=== PATIENT | female | born 1950 | race Caucasian/White ===

== ENCOUNTER 2016-11-15 09:42 | Emergency (ER) | payer OTHER ==
[~2016-11-15] VITALS: Ht 172.7 cm; Wt 113.4 kg
--- NOTE | ~2016-11-15 | H ---
[facility] [place] [address] HISTORY AND PHYSICAL Name: CHECO HAMEED Room #: DEP MDonovanR.#: [id number] Admission: 11/15/16 Attend Phys: Discharge: 11/15/16 Date of : 48 Report #: [id number] THIS REPORT FOR: //name// CC: Michael Ndiaye DATE OF SERVICE: 11/15/2016 CHIEF COMPLAINT: Altered mental status. HISTORY OF PRESENT ILLNESS: The patient is a 66-year-old female sent to the ER from [facility] facility for evaluation of altered mental status. She had recently suffered a series of 2 strokes along with cardiac complications at [facility]. This left her with some dysarthria and left hemiparesis. She has a remote history of renal transplant and has been left with some chronic kidney insufficiency. This morning, she felt sudden onset of headache and did not feel right and had altered mental status. She was transferred emergently in an unresponsive state to the ER and subsequently was intubated after multiple attempts. A CT of the brain reveals a large hematoma of the right occipital lobe with extension of bleeding into the fourth ventricle and marked effacement of the basilar cisterns with early tonsillar herniation. There is a 3.5 cm right to left midline shift. Dr. Ndiaye in the Emergency Room spoken with Neurosurgery at [facility] and they reviewed the scan. There is no surgical intervention at this point and palliative care has been recommended. PAST MEDICAL HISTORY: As above, there is a history of non-ST segment elevation myocardial infarction, history of renal transplant in 2010, respiratory failure, peripheral artery disease, diabetes. PAST SURGICAL HISTORY: Unknown. FAMILY HISTORY: Unknown. SOCIAL HISTORY: Unknown. ALLERGIES: MORPHINE. MEDICATIONS: Currently list from the outlying facility is unknown and not available. REVIEW OF SYSTEMS: She is unable to give review. PHYSICAL EXAMINATION: VITAL SIGNS: Temperature 36.2, pulse 79, respirations 16 on the ventilator, blood pressure 169/87, O2 sat 100% on the ventilator. [facility] [address] [place] [address] HISTORY AND PHYSICAL Name: CHECO HAMEED Room #: DEP [facility]US[facility]ovan[facility] [id number] Admission: 11/15/16 Attend Phys: Discharge: 11/15/16 Date of : 48 Report #: [id number] GENERAL: She looks chronically ill. She is not alert. HEART AND LUNGS: Unremarkable. ABDOMEN: Soft. EXTREMITIES: No edema. NEUROLOGIC: She had no response to any verbal or physical stimuli and pupils are dilated. ASSESSMENT: 1. Massive intracerebral hemorrhage. 2. Acute respiratory failure due to the above. 3. Cerebrovascular disease with prior history of 2 strokes. 4. Chronic kidney disease. 5. Diabetes type 2. 6. Anemia of chronic disease. 7. Personal history of renal transplant. PLAN: This appears to be a terminal event. Again, there is nothing that Neurosurgery at [facility] has to offer and they have recommended palliative care. The family is aware and at the bedside. At this point, she has intubation only, cardiac resuscitation. The family is going to gather with additional members and their christian hydro generation supervisor and confer they are aware that this is a fatal event. <ELECTRONICALLY SIGNED> By: Sukhi Claire MD 11/16/16 1040 [id number] [id number] Sukhi Claire MD /nt
--- NOTE | ~2016-11-15 | EKG ---
[address] [place] [address] ELECTROCARDIOGRAM REPORT Name: CHECO HAMEED Room #: DEP Cathy#: [id number] Admission: 11/15/16 Attend Phys: Discharge: 11/15/16 Date of : 48 Report #: [id number] THIS REPORT FOR: //name// [facility] ED Test Date: 2016-11-15 Test Time: 10:59:07 Pat Name: CHECO HAMEED Department: Room: 170 Gender: F Planning Advisor: sheila : 1950 Requested By: Aimee Ndiaye Order Number: [id number] MD: Ag Watson Measurements Intervals [place] Rate: 80 P: 78 ME: 164 QRS: 84 QRSD: 94 T: 28 QT: 431 QTc: 498 Interpretive Statements Sinus rhythm Low voltage with right axis deviation Borderline prolonged QT interval Electronically Signed On 11-19-2016 8:16:49 CDT by Ag Watson [email or web address] <ELECTRONICALLY SIGNED> By: Ag Watson MD 11/19/16 0816 1059 1059 MD CAMILLA Lopez
[2016-11-15 09:44] VITALS: BP 216/79
[2016-11-15 10:19] LABS: ABSOLUTE NEUTROPHILS 6.6 thou/uL (1.4-8.2); BASOPHILS 0.5 % (0.0-2.0); EOSINOPHILS 0.4 % (0.0-3.0); HEMATOCRIT 34.3 % (37.0-47.0); HEMOGLOBIN 10.9 gm/dL (12.0-15.0); LYMPHOCYTES 21.7 % (24.0-44.0); MCH 29.3 pg (26.0-34.0); MCHC 31.9 g/dL (28.0-37.0); MCV 91.7 fL (80.0-100.0); MONOCYTES 3.2 % (1.0-8.0); PLATELET COUNT 176 thou/uL (150-400); POLYS 74.2 % (36.0-66.0); RBC 3.74 mil/uL (4.20-5.00); RDW 19.5 % (10.5-14.5); WBC 8.9 thou/uL (4.0-11.0)
[2016-11-15 10:20] LABS: MANUAL DIFF NO
[2016-11-15 10:26] LABS: POC CA IONIZED 4.3 mg/dL (4.5-5.3); POC CREATININE 2.6 mg/dL (0.6-1.3); POC HEMOGLOBIN 11.9 g/dL (12.0-15.0); POC POTASSIUM 5.7 mmol/L (3.5-5.1)
[2016-11-15 10:28] LABS: ANION GAP 12 mmol/L (7-16); BUN 55 mg/dL (7-18); CALCIUM 8.3 mg/dL (8.5-10.1); CHLORIDE 102 mmol/L (98-107); CO2 23 mmol/L (21-32); CREATININE 2.8 mg/dL (0.6-1.0); GLUCOSE 244 mg/dL (74-106); POTASSIUM 5.8 mmol/L (3.5-5.1); SODIUM 137 mmol/L (136-145)
[2016-11-15 10:36] LABS: TROPONIN-I < 0.04 ng/mL (<0.04-0.07)
[2016-11-15 11:00] LABS: ABG SAMPLE TYPE ARTERIAL; BE(vivo) -3.3 mmol/L (-2 to +3); HCO3 22.9 mmol/L (22.0-26.0); LACTATE 1.56 mmol/L (0.5-2.0); O2(CT) 15.9 mL/dL (15.0-23.0); O2Hb 97.7 % (92.0-98.0); PCO2 45.8 mmHg (35.0-45.0); PO2 134.6 mmHg (80.0-100.0); sO2 98.5 % (92.0-98.0); tCO2 24.3 mmol/L (24.0-30.0)
[2016-11-15 11:01] LABS: STICK SITE R.RADIAL; pH 7.316 (7.360-7.450)
[2016-11-15 11:03] LABS: TIDAL VOLUME 600 ml; VDS CMV MODE cc
[2016-11-15 12:15] LABS: APTT 31.5 Seconds (24.5-32.8); INR 1.1; PROTIME 11.5 Seconds (9.3-11.4)
[2016-11-15 14:25] VITALS: BP 0/0
== END 2016-11-15 14:25 ==
LOC: ER 09:42 → EROBS 12:57 → ER 14:25
PROVIDERS: Emergency Medicine
DX: J96.90 Respiratory failure, unspecified, unspecified whether with hypoxia or hypercapnia (principal); I62.9 Nontraumatic intracranial hemorrhage, unspecified; I10 Essential (primary) hypertension; E11.22 Type 2 diabetes mellitus with diabetic chronic kidney disease; I12.0 Hypertensive chronic kidney disease with stage 5 chronic kidney disease or end stage renal disease; N18.6 End stage renal disease; I21.4 Non-ST elevation (NSTEMI) myocardial infarction; A41.9 Sepsis, unspecified organism; N39.0 Urinary tract infection, site not specified; Z88.5 Allergy status to narcotic agent
CPT/HCPCS: 64031